=== PATIENT | male | born 2000 | race Caucasian/White ===

== ENCOUNTER 2022-02-18 13:09 | Inpatient (IN) ==
[2022-02-18] MEDS ORDERED: *HR* LORazepam 2 MG/ML VIAL IM ONE (13:46)
[2022-02-18 14:30] LABS: Acetaminophen < 10 mcg/mL (10-20); BUN/Creatinine Ratio 26 (6-26); Bacteria,Urine Few per hpf (None-Few); Basophils # 0.1 K/mcL (0.0-0.2); Basophils % 0.3 %; Bilirubin,Urine Negative (Negative); Blood Urea Nitrogen 20 mg/dL (6-20); Blood,Urine Negative (Negative); Calcium 10.2 mg/dL (8.6-10.3); Carbon Dioxide 20 mEq/L (23-29); Chloride 103 mEq/L (98-107); Chol/HDL Ratio 3.2 (0-4.9); Cholesterol 165 mg/dL (< 200); Clarity,Urine Clear (Clear); Color,Urine Yellow (Yellow); Eosinophils # 0.2 K/mcL (0.0-0.6); Eosinophils % 1.6 %; Ethanol < 10 mg/dL (Less than 10); Glucose 113 mg/dL (70-105); Glucose,Urine (UA) Normal (Normal); HDL Cholesterol 51 mg/dL (40-59); Hematocrit 45.4 % (37.5-50.1); Immature Granulocytes % 0.5 % (0-4); Ketones,Urine Negative (Negative); LDL Cholesterol,Calculated 98 mg/dL (< 100); Leukocyte Esterase,Urine Negative (Negative); Lymphocytes # 3.7 K/mcL (0.6-4.6); Mean Corpuscular HGB Conc 35.2 g/dL (31.6-35.5); Mean Corpuscular Hemoglobin 31.1 pg (28.0-33.3); Mean Corpuscular Volume 88.2 fL (83.0-100.0); Mean Platelet Volume 9.4 fL (9.4-12.4); Monocytes # 1.3 K/mcL (0.0-1.3); Monocytes % 8.8 %; Mucus,Urine Few per lpf (None-Few); Neutrophils # 9.3 K/mcL (1.6-8.9); Nitrite,Urine Negative (Negative); Osmolality,Calculated 283 (280-300); Platelet Count 397 K/mcL (140-400); Potassium 3.9 mEq/L (3.5-5.1); Protein,Urine 50 mg/dL (Neg-Trace); RBC,Urine 0-3 per hpf (0-3); Red Blood Count 5.15 M/mcL (4.19-5.50); Red Cell Distribution Width 12.3 % (11.5-14.5); Salicylate < 2.5 mg/dL (15.0-30.0); Segmented Neutrophils % 63.8 %; Sodium 135 mEq/L (136-145); Specific Gravity,Urine 1.026 (1.010-1.025); Triglycerides 80 mg/dL (< 150); WBC,Urine 0-3 per hpf (0-3); White Blood Count 14.6 K/mcL (4.3-11.1); eGFR For African Americans > 60; eGFR For Non-African Americans > 60
[2022-02-18 14:48] LABS: Amphetamine Screen,Urine Negative ng/mL (Cutoff=1000); Barbiturate Screen,Urine Negative ng/mL (Cutoff=200); Benzodiazepines Screen,Urine Negative ng/mL (Cutoff=200); Cannabinoid Screen,Urine Positive ng/mL (Cutoff = 50); Cocaine Screen,Urine Negative ng/mL (Cutoff= 300); Opiate Screen,Urine Negative ng/mL (Cutoff=300); Phencyclidine Screen,Urine Negative ng/mL (Cutoff=25)
[2022-02-18 15:17] LABS: Estimated Average Glucose 100 mg/dl; Hemoglobin A1C 5.1 %
[2022-02-18 18:02] LABS: Influenza A PCR Negative (Negative); Influenza B PCR Negative (Negative); Resp. Syncytial Virus PCR Negative (Negative)
[2022-02-18 18:04] LABS: SARS-CoV-2 by PCR (In House) Negative (Negative)
[2022-02-18] MEDS ORDERED: Haloperidol Lactate 5 MG/ML VIAL IM PRN (18:48)
[2022-02-18] MEDS ORDERED: haloperidoL 5 MG TABLET PO PRN (18:48)
[2022-02-18] MEDS ORDERED: Acetaminophen 325 MG TABLET PO PRN (18:48)
[2022-02-18] MEDS ORDERED: *HR* LORazepam 1 MG TABLET PO PRN (18:48)
[2022-02-18] MEDS ORDERED: *HR* LORazepam 2 MG/ML VIAL IM PRN (18:48)
[2022-02-18] MEDS: hydrOXYzine pamoate 25 MG CAPSULE PO PRN (23:24)
[2022-02-18] MEDS: traZODone 50 MG TABLET PO PRN (23:24)
[2022-02-19] MEDS ORDERED: MOM Conc 10 ML UD.LIQ PO PRN (08:06)
[2022-02-19] MEDS ORDERED: Mag Hydrox/Al Hydrox/Simeth 30 ML UDC PO PRN (08:06)
[2022-02-19] MEDS: hydrOXYzine pamoate 25 MG CAPSULE PO PRN ×2 (09:38→20:16)
[2022-02-19] MEDS: Nicotine 21 MG PATCH.TD24 TD SCH (12:58)
[2022-02-19] MEDS: traZODone 50 MG TABLET PO PRN (20:16)
[2022-02-19] MEDS ORDERED: risperiDONE 1 MG TABLET PO SCH (21:00)
[2022-02-20] MEDS: Nicotine 21 MG PATCH.TD24 TD SCH (09:44)
[2022-02-20] MEDS ORDERED: risperiDONE 1 MG TABLET PO SCH (21:00)
[2022-02-20] MEDS: hydrOXYzine pamoate 25 MG CAPSULE PO PRN (21:02)
[2022-02-20] MEDS: traZODone 50 MG TABLET PO PRN (21:02)
[2022-02-21] MEDS: Nicotine 21 MG PATCH.TD24 TD SCH (09:12)
[2022-02-21 10:25] VITALS: BP 148/61; PULSE 102; TEMP 97.6; O2SAT 98
== END 2022-02-21 12:00 | disposition home or self-care (01) | DRG 751 ==
LOC: EMEROOARM 13:09 → 1ANU 18:50
PROVIDERS: ADMIT Psychiatry & Neurology Psychiatry; ATTEND Psychiatry & Neurology Psychiatry